=== PATIENT | male | born 1930 | race Caucasian/White ===

== ENCOUNTER 2019-11-14 13:57 | Outpatient (CLI) | payer MEDICARE ==
[~2019-11-14] VITALS: Ht 172.7 cm; Wt 72.6 kg
[2019-11-14 14:31] LABS: TOTAL HEMOGLOBIN 11.2 G/dl (14.0-18.0)
[2019-11-14] MEDS ORDERED: albuterol 2.5 MG/3 ML nebule NEB ONE (14:50)
== END 2019-11-14 23:59 | disposition home or self-care (01) ==
LOC: RT 13:57
PROVIDERS: ATTEND Internal Medicine Pulmonary Disease
DX: R94.2 Abnormal results of pulmonary function studies (principal); J98.4 Other disorders of lung; D64.89 Other specified anemias
CPT/HCPCS: 85018; 94010; 94727; 94729